=== PATIENT | male | born 1990 | race Caucasian/White ===

== ENCOUNTER 2025-05-19 20:06 | Emergency (ER) | payer SELFPAY | END 2025-05-19 20:51 | disposition home or self-care (01) | LOC: MADERS 20:06 | DX: S60.022A Contusion of left index finger without damage to nail, initial encounter (principal); I10 Essential (primary) hypertension; F17.290 Nicotine dependence, other tobacco product, uncomplicated; W23.1XXA Caught, crushed, jammed, or pinched between stationary objects, initial encounter; Y99.0 Civilian activity done for income or pay; Z79.899 Other long term (current) drug therapy | CPT/HCPCS: 99283 ==